=== PATIENT | male | born 1960 | race Caucasian/White ===

== ENCOUNTER 2018-04-15 08:12 | Outpatient (CLI) | payer OTHER ==
--- NOTE | 2018-04-16 09:01 | NM ---
RADIOIODINE THYROID UPTAKE AND SCAN: HISTORY: Nontoxic single thyroid nodule. Normal TSH of 1.1386 on 01/30/18. RADIOPHARMACEUTICAL: 244 microcuries Iodine-123 administered orally. FINDINGS: No hot or cold nodules are seen. Fairly homogeneous tracer distribution is noted to both lobes of the thyroid gland. The 24 hour uptake measures 8.2% (normal 10-30%). IMPRESSION: Low 24 hour radioiodine uptake. POS: ANGELICAH
== END 2018-04-15 08:13 | disposition home or self-care (01) ==
LOC: NM 08:12
PROVIDERS: ATTEND Family Medicine
DX: E04.1 Nontoxic single thyroid nodule (principal)
CPT/HCPCS: 78014; A9516

== ENCOUNTER 2018-05-06 11:47 | Outpatient (CLI) | payer OTHER ==
[2018-05-06 12:42] LABS: #Eosinphils 0.1 thou/uL (0.0-0.7); #Lymphocytes 2.6 thou/uL (1.20-3.40); #Monocytes 0.6 thou/uL (0.11-0.59); #Neutrophils 5.6 thou/uL (1.40-6.50); %Basophils 0.3 % (0.0-1.0); %Eosinophils 0.9 % (0.0-10.0); %Lymphocytes 29.2 % (21.0-51.0); %Monocytes 6.4 % (0.0-10.0); %Neutrophils 63.2 % (42.0-75.0); Hemoglobin 16.2 g/dL (14.0-18.0); Mean Corpuscular HGB CONC 34.2 g/dL (32.0-36.0); Mean Corpuscular Hemoglobin 30.9 pg (27.0-31.0); Mean Corpuscular Volume 90.3 fL (78.0-98.0); Mean Platelet Volume 6.4 fL (7.4-10.4); Platelet Count 292 thou/uL (130-400); RBC Distribution Width 11.6 % (11.5-14.5); Red Blood Cell (RBC) Count 5.23 mill/uL (4.70-6.10); White Blood Cell (WBC) Count 8.8 thou/uL (4.8-10.8)
[2018-05-06 12:53] LABS: PTT 29.3 SEC (22.9-36.1); Prothrombin Time 13.1 SEC (12.0-14.7)
[2018-05-06 13:00] LABS: ALT (SGPT) 29 U/L (8-55); AST (SGOT) 20 U/L (5-34); Albumin 4.1 g/dL (3.5-5.0); Alkaline Phosphatase 64 U/L (40-150); Anion Gap 12 mmol/L (10-20); BUN (Urea Nitrogen) 19 mg/dL (8.4-25.7); Bilirubin, Total 0.3 mg/dL (0.2-1.2); Calc. Creatinine Clearance 0 mL/min (70-130); Calcium 9.5 mg/dL (7.8-10.44); Carbon Dioxide 24 mmol/L (22-29); Chloride 106 mmol/L (98-107); Estimated GFR-MDRD 81; Globulin 2.5 g/dL (2.4-3.5); Glucose 95 mg/dL (70-105); Potassium 4.4 mmol/L (3.5-5.1); Protein, Total 6.6 g/dL (6.0-8.3); Sodium 138 mmol/L (136-145)
== END 2018-05-06 11:48 | disposition home or self-care (01) ==
LOC: LABBT 11:47
PROVIDERS: ATTEND Internal Medicine Cardiovascular Disease
DX: Z01.812 Encounter for preprocedural laboratory examination (principal); I25.10 Atherosclerotic heart disease of native coronary artery without angina pectoris
CPT/HCPCS: 80053; 85025; 85610; 85730

== ENCOUNTER 2018-05-07 05:50 | Day surgery (SDC) | payer OTHER ==
[2018-05-06 12:01] VITALS: BMI 29.7
[2018-05-07] MEDS ORDERED: Diazepam 5 MG TAB PO SCH (06:00)
[2018-05-07] MEDS ORDERED: DC ENOXAPARIN NIGHT BEFORE CATH FS SCH (06:00)
[2018-05-07] MEDS ORDERED: Diazepam 5 MG TAB ONE (06:13)
[2018-05-07] MEDS ORDERED: Lidocaine 1% (PF) 30 ML VIAL ONE (06:46)
[2018-05-07] MEDS ORDERED: HOLD HYPOGLYCEMIC MEDS AM OF CATH FS SCH (07:15)
[2018-05-07] MEDS ORDERED: Fentanyl 100 MCG/2 ML VIAL ONE (07:43)
[2018-05-07] MEDS ORDERED: Midazolam HCl 2 mg/2 ml Vial ONE (07:43)
[2018-05-07] MEDS ORDERED: diphenhydrAMINE 50 MG/ML VIAL ONE (07:58)
[2018-05-07] MEDS ORDERED: Nitroglycerin 100MG/250ML BOT 250 ML ONE (07:58)
[2018-05-07] MEDS ORDERED: Hydrocortisone Sod Succ/PF 100 mg/2 ml Vial ONE (08:32)
[2018-05-07] MEDS ORDERED: predniSONE 20 MG TAB ONE (12:49)
[2018-05-07] MEDS ORDERED: Iopamidol 370 76% 100 ML VIAL ONE (15:11)
--- NOTE | 2018-05-07 15:43 | DIS ---
DATE OF ADMISSION: 05/07/2018 DATE OF DISCHARGE: 05/07/2018 Mr. Scott underwent cardiac catheterization today. Please see the details of the notes, this should be treated medically. After talking to this gentleman, he is still using tobacco. I strongly advised him to quit smoking. Otherwise, medical therapy is appropriate. There is a stenosis in the distal branch and stenting this area could jeopardize a much larger proximal branch into an ostial location. Medicines are unchanged. He will come back and see us in a couple of months. Job ID: [id number]
== END 2018-05-07 13:20 | disposition home or self-care (01) ==
LOC: CCL 05:50
PROVIDERS: ATTEND Internal Medicine Cardiovascular Disease
DX: I25.119 Atherosclerotic heart disease of native coronary artery with unspecified angina pectoris (principal); I10 Essential (primary) hypertension; E78.00 Pure hypercholesterolemia, unspecified; Z91.041 Radiographic dye allergy status; Z79.52 Long term (current) use of systemic steroids; Z79.82 Long term (current) use of aspirin; Z79.899 Other long term (current) drug therapy; Z98.890 Other specified postprocedural states
CPT/HCPCS: 76942; 93458; 99152; 99153; C1769; J1200; J1644; J1720; J2001; J2250; J3010; J7506